=== PATIENT | female | born 1970 | race African-American/Black ===

== ENCOUNTER → 2016-07-26 | Outpatient (CLI) | payer BC | LOC: MC.RAD 10:15 | DX: Z12.31 Encounter for screening mammogram for malignant neoplasm of breast (principal) ==

== ENCOUNTER → 2017-07-28 | Outpatient (CLI) | payer BC | LOC: MC.RAD 07:00 | DX: Z12.31 Encounter for screening mammogram for malignant neoplasm of breast (principal); R92.8 Other abnormal and inconclusive findings on diagnostic imaging of breast ==

== ENCOUNTER → 2017-08-18 | Outpatient (CLI) | payer BC | LOC: MC.RAD 09:58 | DX: R92.8 Other abnormal and inconclusive findings on diagnostic imaging of breast (principal) ==

== ENCOUNTER → 2018-02-20 | Outpatient (CLI) | payer BC | LOC: MC.RAD 07:19 | DX: N60.01 Solitary cyst of right breast (principal) | CPT/HCPCS: G0279 ==

== ENCOUNTER → 2018-08-18 | Outpatient (CLI) | payer BC | LOC: MC.RAD 07:10 | DX: Z12.31 Encounter for screening mammogram for malignant neoplasm of breast (principal) ==

== ENCOUNTER 2018-12-21 16:38 | Emergency (ER) | payer BC ==
[~2018-12-21] VITALS: Ht 162.6 cm; Wt 90.7 kg
[2018-12-21 16:43] VITALS: TEMP 98.1
[2018-12-21 17:03] LABS: BASO % 0.7 % (0.0-2.0); EOS # 0.3 (0.0-0.7); EOS % 4.5 % (0-4.0); GRAN # 1.9 (1.4-6.5); GRAN % 33.3 % (42.2-75.2); HEMATOCRIT 38.2 % (37.0-47.0); HEMOGLOBIN 12.7 g/dl (12.5-16.0); LYMPH # 2.8 (1.2-3.4); LYMPH % 48.6 % (20.0-51.0); MEAN CELL VOLUME 89 fl (80.0-100.0); MEAN CORPUSCULAR HEMOGLOBIN 30 pg (27.0-31.0); MEAN CORPUSCULAR HGB CONC 33 g/dl (33.0-37.0); MONO # 0.7 (0.1-0.6); MONO % 12.7 % (1.7-9.3); PLATELET COUNT 320 K/mm3 (130-400); RED BLOOD COUNT 4.28 M/mm3 (4.10-5.30); REDCELL DISTRIBUTION WIDTH-CV 11.8 % (11.5-14.5)
[2018-12-21] MEDS ORDERED: MAXZIDE 50 MG-71 TAB PO (17:04)
[2018-12-21] MEDS ORDERED: HYDRODIURIL50 MG PO (17:04)
[2018-12-21] MEDS ORDERED: PROAIR HFA0.09 MG/AC IH (17:04)
[2018-12-21 17:19] LABS: ALBUMIN 4.2 gm/dL (3.5-5.0); BILIRUBIN,TOTAL 0.4 mg/dL (0.0-1.0); CALCIUM 9.5 mg/dL (8.4-10.2); CREATININE, serum 0.65 (0.52-1.25); POTASSIUM 3.5 mmol/L (3.4-5.0); TOTAL PROTEIN 7.6 gm/dL (6.4-8.2)
[2018-12-21 18:30] VITALS: BP 116/86; PULSE 73
== END 2018-12-21 18:30 | disposition home or self-care (01) ==
LOC: COL.ER 16:38
PROVIDERS: Emergency Medicine
DX: R20.2 Paresthesia of skin (principal)

== ENCOUNTER 2018-12-21 23:55 | Emergency (ER) | payer BC ==
[~2018-12-21] VITALS: Ht 162.6 cm; Wt 90.5 kg
[~2018-12-21 23:55] MED LIST: HYDRODIURIL50 MG PO; MAXZIDE 50 MG-71 TAB PO; PROAIR HFA0.09 MG/AC IH
[2018-12-22 00:01] VITALS: TEMP 98
[2018-12-22 01:24] VITALS: BP 108/74; PULSE 72
== END 2018-12-22 01:46 | disposition home or self-care (01) ==
LOC: COL.ER 23:55
DX: R20.2 Paresthesia of skin (principal); I10 Essential (primary) hypertension; G40.909 Epilepsy, unspecified, not intractable, without status epilepticus; J45.909 Unspecified asthma, uncomplicated; Z90.710 Acquired absence of both cervix and uterus

== ENCOUNTER → 2018-12-22 | Outpatient (CLI) | payer BC | LOC: COL.RAD 09:03 | DX: R20.2 Paresthesia of skin (principal) ==

== ENCOUNTER → 2019-02-01 | Outpatient (CLI) | payer BC | LOC: COL.RAD 01-31 12:30 | DX: I63.9 Cerebral infarction, unspecified (principal) | CPT/HCPCS: A9585 ==

== ENCOUNTER 2019-02-10 05:02 | Emergency (ER) | payer BC ==
[~2019-02-10] VITALS: Ht 162.6 cm; Wt 91.4 kg
[2019-02-10 06:09] LABS: BASO % 0.9 % (0.0-2.0); EOS # 0.1 (0.0-0.7); EOS % 4.1 % (0-4.0); GRAN # 1.3 (1.4-6.5); GRAN % 37.5 % (42.2-75.2); HEMATOCRIT 37.8 % (37.0-47.0); HEMOGLOBIN 12.7 g/dl (12.5-16.0); LYMPH # 1.3 (1.2-3.4); LYMPH % 38.8 % (20.0-51.0); MEAN CELL VOLUME 89 fl (80.0-100.0); MEAN CORPUSCULAR HEMOGLOBIN 30 pg (27.0-31.0); MEAN CORPUSCULAR HGB CONC 34 g/dl (33.0-37.0); MEAN PLATELET VOLUME 9.4 fl (7.4-10.4); MONO # 0.6 (0.1-0.6); MONO % 18.4 % (1.7-9.3); PLATELET COUNT 301 K/mm3 (130-400); RED BLOOD COUNT 4.25 M/mm3 (4.10-5.30); REDCELL DISTRIBUTION WIDTH-CV 11.9 % (11.5-14.5)
[2019-02-10 06:28] LABS: ALBUMIN 4.3 gm/dL (3.5-5.0); BILIRUBIN,TOTAL 0.5 mg/dL (0.0-1.0); CALCIUM 9.3 mg/dL (8.4-10.2); CREATININE, serum 0.66 (0.52-1.25); TOTAL PROTEIN 7.5 gm/dL (6.4-8.2)
[2019-02-10] MEDS ORDERED: K-DUR20 MEQ PO (07:35)
[2019-02-10 07:40] VITALS: BP 100/79; PULSE 69; TEMP 98.2
[2019-02-11] MEDS ORDERED: K-DUR20 MEQ PO (13:34)
[2019-02-13] MEDS ORDERED: CEPHALEXIN500 M1 PO (16:59)
== END 2019-02-10 07:46 | disposition home or self-care (01) ==
LOC: COL.ER 05:02
PROVIDERS: Emergency Medicine
DX: R20.2 Paresthesia of skin (principal); R00.2 Palpitations; R51 Headache; I10 Essential (primary) hypertension; J45.909 Unspecified asthma, uncomplicated

== ENCOUNTER 2019-02-11 10:52 | Emergency (ER) | payer BC ==
[~2019-02-11] VITALS: Ht 162.6 cm; Wt 91.4 kg
[~2019-02-11 10:52] MED LIST changes: +K-DUR20 MEQ PO
[2019-02-11 11:14] VITALS: PULSE 66; TEMP 98.1
[2019-02-11 12:20] LABS: HEMOGLOBIN 12.8 g/dl (12.5-16.0); MEAN CELL VOLUME 89 fl (80.0-100.0); MEAN CORPUSCULAR HEMOGLOBIN 30 pg (27.0-31.0); MEAN CORPUSCULAR HGB CONC 34 g/dl (33.0-37.0); MEAN PLATELET VOLUME 9.5 fl (7.4-10.4); PLATELET COUNT 326 K/mm3 (130-400); RED BLOOD COUNT 4.27 M/mm3 (4.10-5.30); REDCELL DISTRIBUTION WIDTH-CV 11.9 % (11.5-14.5)
[2019-02-11 12:22] LABS: PROTHROMBIN TIME 11.8 SECONDS (9.7-12.8)
[2019-02-11 12:25] LABS: ALANINE AMINOTRANSFERASE 16 U/L (9-52); ALBUMIN 4.8 gm/dL (3.5-5.0); ALKALINE PHOSPHATASE 86 U/L (50-136); ANION GAP 10 mmol/L (7-16); AST,SGOT 30 U/L (15-37); BILIRUBIN,TOTAL 0.7 mg/dL (0.0-1.0); BLOOD UREA NITROGEN 8 mg/dL (7-17); CALCIUM 9.7 mg/dL (8.4-10.2); CARBON DIOXIDE 28 mmol/L (22-30); CHLORIDE 96 mmol/L (98-107); CREATININE, serum 0.62 (0.52-1.25); GLUCOSE 92 mg/dL (74-106); SODIUM 134 mmol/L (137-145); TOTAL PROTEIN 8.4 gm/dL (6.4-8.2)
[2019-02-11 12:47] LABS: POTASSIUM 2.8 mmol/L (3.4-5.0); TROPONIN-I < 0.012 ng/mL (0.000-0.035)
[2019-02-11 12:51] LABS: EOSINOPHIL 1 % (0-4); LYMPHOCYTE 36 % (20.0-51.0); NEUTROPHILS 39 % (42.0-75.2); PLATELET ESTIMATE NORMAL (NORMAL)
[2019-02-11] MEDS ORDERED: K-DUR20 MEQ PO (13:34)
[2019-02-11 13:44] VITALS: BP 126/84
[2019-02-13] MEDS ORDERED: CEPHALEXIN500 M1 PO (16:59)
== END 2019-02-11 13:49 | disposition home or self-care (01) ==
LOC: COL.ER 10:52
PROVIDERS: Family Medicine
DX: R51 Headache (principal); R42 Dizziness and giddiness

== ENCOUNTER 2019-02-16 02:13 | Emergency (ER) | payer BC ==
[~2019-02-16] VITALS: Ht 162.6 cm; Wt 89.5 kg
[~2019-02-16 02:13] MED LIST changes: +CEPHALEXIN500 M1 PO
[2019-02-16 02:23] VITALS: TEMP 97.9
[2019-02-16 03:06] LABS: BASO % 0.6 % (0.0-2.0); EOS # 0.2 (0.0-0.7); EOS % 4.4 % (0-4.0); GRAN % 37.8 % (42.2-75.2); HEMATOCRIT 39.1 % (37.0-47.0); LYMPH # 2.2 (1.2-3.4); LYMPH % 42.1 % (20.0-51.0); MEAN CELL VOLUME 90 fl (80.0-100.0); MEAN CORPUSCULAR HEMOGLOBIN 30 pg (27.0-31.0); MEAN CORPUSCULAR HGB CONC 33 g/dl (33.0-37.0); MEAN PLATELET VOLUME 9.4 fl (7.4-10.4); MONO # 0.8 (0.1-0.6); MONO % 14.9 % (1.7-9.3); PLATELET COUNT 295 K/mm3 (130-400); RED BLOOD COUNT 4.36 M/mm3 (4.10-5.30); REDCELL DISTRIBUTION WIDTH-CV 11.9 % (11.5-14.5)
[2019-02-16 03:18] LABS: ALANINE AMINOTRANSFERASE 8 U/L (9-52); ALBUMIN 4.5 gm/dL (3.5-5.0); ALKALINE PHOSPHATASE 79 U/L (50-136); ANION GAP 11 mmol/L (7-16); AST,SGOT 25 U/L (15-37); BILIRUBIN,TOTAL 0.4 mg/dL (0.0-1.0); BLOOD UREA NITROGEN 8 mg/dL (7-17); CARBON DIOXIDE 26 mmol/L (22-30); CHLORIDE 102 mmol/L (98-107); CREATININE, serum 0.62 (0.52-1.25); GLUCOSE 97 mg/dL (74-106); POTASSIUM 3.5 mmol/L (3.4-5.0); SODIUM 140 mmol/L (137-145); TOTAL PROTEIN 7.9 gm/dL (6.4-8.2)
[2019-02-16 03:36] LABS: TROPONIN-I < 0.012 ng/mL (0.000-0.035)
[2019-02-16] MEDS ORDERED: TOPROL XL 25MG25 MG PO (05:16)
[2019-02-16 06:21] VITALS: BP 113/69; PULSE 62
== END 2019-02-16 05:52 | disposition home or self-care (01) ==
LOC: COL.ER 02:13
PROVIDERS: Emergency Medicine
DX: R00.2 Palpitations (principal); Z90.710 Acquired absence of both cervix and uterus
CPT/HCPCS: J7040

== ENCOUNTER → 2019-02-21 | Outpatient (CLI) | payer BC ==
[~2019-02-21] MED LIST changes: +TOPROL XL 25MG25 MG PO
== END ==
LOC: COL.RAD 07:59
DX: R10.32 Left lower quadrant pain (principal)

== ENCOUNTER → 2019-10-18 | Outpatient (CLI) | payer BC | LOC: MC.RAD 08-20 07:15 | DX: Z12.31 Encounter for screening mammogram for malignant neoplasm of breast (principal); R92.2 Inconclusive mammogram ==

== ENCOUNTER → 2020-10-20 | Outpatient (CLI) | payer BC | LOC: MC.RAD 07:37 | DX: Z12.31 Encounter for screening mammogram for malignant neoplasm of breast (principal); R92.8 Other abnormal and inconclusive findings on diagnostic imaging of breast ==

== ENCOUNTER → 2020-10-22 | Outpatient (CLI) | payer BC | LOC: MC.RAD 08:56 | DX: N64.89 Other specified disorders of breast (principal) ==

== ENCOUNTER 2021-09-11 08:05 | Day surgery (SDC) | payer BC ==
[2021-09-11] VITALS (7 sets, daily range): BP systolic 116–143; BP diastolic 74–100; PULSE 65–90; TEMP 97.4–97.6
[~2021-09-11] VITALS: Ht 162.6 cm; Wt 86.8 kg
[2021-09-11] MEDS ORDERED: WELLBUTRIN SR150 M1 PO (09:01)
[2021-09-11] MEDS ORDERED: ALDACTONE50 MG PO (09:01)
[2021-09-11] MEDS ORDERED: PROVENTIL0.09 MG/A1 IH (09:01)
--- NOTE | 2021-09-11 09:25 | NUR ---
The patient's blood sugar was rechecked with a result of 326. Sarwat, [employer] was notified of this level and wants the nurse to recheck the blood sugar in 30 minutes.
--- NOTE | 2021-09-11 12:08 | NUR ---
1040 Pt returns from endo procedure via cart and RN assist to [facility] [place] [facility]. Pt ambulates from cart to recliner with RN assist. Monitors on and alarms set. Call light within reach. Report received from [facility]. Pt alert and oriented. Pt requests water and muffin. Pt denies any pain or nausea. Pt's son present in room 1050 Pt taking food and drink well. No complications noted. 1204 Discharge instructions given to pt and pt's son . All questions answered to their satisfaction. Handed to pt are a thank you card and discharge information. 1208 Pt transferred out of the hospital via wheelchair and this RN assist, to private vehicle driven by pt's son.
== END 2021-09-11 12:08 | disposition home or self-care (01) ==
LOC: SDCO 08:05
DX: Z12.11 Encounter for screening for malignant neoplasm of colon (principal); D12.3 Benign neoplasm of transverse colon; D12.8 Benign neoplasm of rectum; Z80.0 Family history of malignant neoplasm of digestive organs
CPT/HCPCS: J2704; J7120